=== PATIENT | male | born 1975 | race Caucasian/White ===

== ENCOUNTER 2021-06-12 18:19 | Emergency (ER) | payer OTHER, SELFPAY ==
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
[2021-06-12 18:30] VITALS: BP 165/107; BP 171/104; PULSE 91; PULSE 95; RESP 18; TEMP 36.9; O2SAT 100; O2SAT 98; BMI 20.7
--- NOTE | 2021-06-12 19:25 | MHC.CARE ---
CARE Team attempted to meet with pt to offer SUDE, but pt had already eloped.
--- NOTE | 2021-06-12 19:33 | PC.NURSE ---
This nurse was coming out of ED room 12 when this nurse was informed by another RN that pt may have eloped. This nurse last laid eyes on pt around 191. Pt was sitting on stretcher. Bathrooms checked and all empty barge loader aware, security called MD aware
== END 2021-06-12 19:25 | disposition left against medical advice (07) ==
PROVIDERS: Emergency Provider Emergency Medicine; PCP Internal Medicine
DX: T40.601A Poisoning by unspecified narcotics, accidental (unintentional), initial encounter (principal); Y92.810 Car as the place of occurrence of the external cause
CPT/HCPCS: 99283

== ENCOUNTER 2021-07-16 11:02 | Inpatient (IN) | payer OTHER, SELFPAY ==
--- NOTE | 2021-07-16 | ECG_ITS ---
Test Reason : positive for cocaine Blood Pressure : / mmHG Vent. Rate : 061 BPM Atrial Rate : 061 BPM P-R Int : 136 ms QRS Dur : 106 ms QT Int : 444 ms P-R-T Axes : 083 073 076 degrees QTc Int : 446 ms Normal sinus rhythm Normal ECG No previous ECGs available Referred By: Yonis Valdovinos Electronically Signed By:RANULFO DEVI MD
[2021-07-16 11:08] VITALS: BP 151/80; PULSE 64; RESP 19; TEMP 36.6; O2SAT 98; BMI 19.8
--- NOTE | 2021-07-16 12:31 | ED_ITS ---
HPI - Psych General Chief Complaint: Psychiatric Symptoms Stated Complaint: CRISIS Time Seen by Provider: 07/16/21 12:30 Source: patient Mode of arrival: ambulatory Limitations: no limitations History of Present Illness HPI Narrative: this is a 46 years old patient with history of bipolar disorder, anxiety, substance abuse presented to the emergency room complaining of increasing anxiety, he states that he is by his . complaint: anxiety Onset (ago): day(s) (1) Duration: constant History of same: Yes Relieving factors: none Exacerbating factors: none Context: recent alcohol abuse and recent drug abuse Related Data Allergies Allergy/AdvReac Type Severity Reaction Status Date / Time No Known Allergies Allergy Verified 06/12/21 18:29 Review of Systems Review of Systems: Yes all other systems are reviewed and are negative Cardiovascular: Cardiovascular: Reports no additional cardiovascular complaints, Denies chest pain and Denies dyspnea Respiratory: Respiratory: Reports no additional respiratory complaints and Denies dyspnea Musculoskeletal: Musculoskeletal: Reports no additional musculoskeletal complaints PMFSH Past Medical History Medical History Anxiety No known health problems Social History Social History Patient Tobacco Use Status: Current everyday Tobacco user Substance Use Type: Marijuana Advance Directives: No Advance Directives Information Provided: Yes Physical Exam Vital Signs: Vital Signs: Last Vital Signs Temp 98 F 07/16/21 11:08 Pulse 64 07/16/21 11:08 Resp 19 07/16/21 11:08 BP 151/80 H 07/16/21 11:08 Pulse Ox 98 07/16/21 11:08 BMI result Body Mass Index 19.8 Const: General: cooperative and comfortable Nutritional Appearance: well nourished Orientation/consciousness: patient oriented x3 HENMT: Head: Yes normal to inspection and Yes No palpable skull fracture present Ears: hearing grossly normal bilaterally General nose exam: Normal external nose present Face and sinus: Yes normal facial exam Mouth: Normal oral and palatal mucosa present Throat: Yes posterior oropharynx normal Neck: Neck: Yes normal visual inspection, Yes full ROM, Yes no lymphadenopathy and Yes no meningeal signs Thyroid: Thyroid normal Chest: Chest palpation & inspection: normal inspection of the chest Resp: Effort & Inspection: normal respiratory effort and able to speak in complete sentences Auscultation: clear to auscultation bilaterally Cardio: Jugular venous distension: no JVD Rate: regular rate Rhythm: regular rhythm GI: Inspection: Yes normal to inspection Palpation (GI): Soft to palpation, not firm, nontender and no guarding Skin: General skin exam: no rashes or lesions noted, elasticity normal and t urgor normal Lesions: no lesions Rashes: no rashes Neuro: General: patient oriented x3, no meningeal signs, no focal motor deficits, CN's II-XI intact bilaterally and normal sensation to monofilament Cranial nerves: Yes CN's II-XII intact bilaterally Course Reevaluation(s) Reevaluation #1: Waiting for [facility] apryl ,case will be sign out to incoming attending Dr Adrian Time: 15:44 MDM - Psych Lab Data Result diagrams: 07/16/21 12:47 07/16/21 12:47 Labs: Lab Results 07/16/21 07/16/21 07/16/21 Range/Units 12:24 12:47 12:47 WBC 8.9 (4.8-10.8) X10*3/uL RBC 4.86 (4.60-5.80) X10*6/uL Hgb 14.1 (14.0-18.0) g/dl Hct 41.4 L (42.0-52.0) % MCV 85.2 (80.0-98.0) fL MCH 29.0 (27.0-33.0) pg MCHC 34.1 (31.0-36.0) g/dl RDW 13.8 (11.0-16.0) % Plt Count 189 (160-400) X10*3/uL MPV 10.5 (9.4-12.4) fL Immature Gran % (Auto) 0.1 (0.0-0.4) % Neut % (Auto) 66.7 (45-73) % Lymph % (Auto) 20.9 (20-40) % Geary % (Auto) 11.4 H (2-11) % Eos % (Auto) 0.6 (0-4) % Baso % (Auto) 0.3 (0-2) % Lymph # (Auto) 1.9 (1.2-4.9) X10*3/uL Geary # (Auto) 1.0 (0.1-1.2) X10*3/uL Eos # (Auto) 0.1 (0.0-0.4) X10*3/uL Baso # (Auto) 0.0 (0.0-0.2) X10*3/uL Abs Immat Gran (auto) 0.01 (0.00-0.03) X10*3/uL Absolute Neuts (auto) 5.9 (2.0-8.3) x10*3/uL Absolute Nucleated RBC 0.000 (0.0-0.012) X10*3/uL Nucleated RBC % (auto) 0.0 (0.0-0.2) /100WBC Sodium 140 (135-145) mmol/L Potassium 4.0 (3.3-5.1) mmol/L Chloride 105 (96-108) mmol/L Carbon Dioxide 26 (22-29) mmol/L Anion Gap 13 (12-20) BUN 16 (9-16) mg/dL Creatinine 0.88 (0.5-1.4) mg/dL Estim Creat Clear Calc 88.4 Estimated GFR > 60 Random Glucose 75 (60-115) mg/dL Calcium 9.1 (8.4-10.2) mg/dL Total Bilirubin 0.8 (0.0-1.0) mg/dL AST 44 H (5-37) U/L ALT 22 (0-40) U/L Alkaline Phosphatase 77 (39-117) U/L Total Protein 6.3 L (6.5-8.0) g/dL Albumin 3.9 (3.5-5.0) g/dL Urine Opiates Screen (Not Detect) Urine Fentanyl Screen (Not Detect) Ur Barbiturates Screen (Not Detect) Ur Phencyclidine Scrn (Not Detect) Ur Amphetamines Screen (Not Detect) U Benzodiazepines Scrn (Not Detect) Urine Cocaine Screen (Not Detect) U Marijuana (THC) Screen (Not Detect) Ethyl Alcohol mg/dL COVID-19 ([facility]) Negative (Negative) COVID-19 Clin Com See Note 07/16/21 07/16/21 Range/Units 12:47 14:01 WBC (4.8-10.8) X10*3/uL RBC (4.60-5.80) X10*6/uL Hgb (14.0-18.0) g/dl Hct (42.0-52.0) % MCV (80.0-98.0) fL MCH (27.0-33.0) pg MCHC (31.0-36.0) g/dl RDW (11.0-16.0) % Plt Count (160-400) X10*3/uL MPV (9.4-12.4) fL Immature Gran % (Auto) (0.0-0.4) % Neut % (Auto) (45-73) % Lymph % (Auto) (20-40) % Geary % (Auto) (2-11) % Eos % (Auto) (0-4) % Baso % (Auto) (0-2) % Lymph # (Auto) (1.2-4.9) X10*3/uL Geary # (Auto) (0.1-1.2) X10*3/uL Eos # (Auto) (0.0-0.4) X10*3/uL Baso # (Auto) (0.0-0.2) X10*3/uL Abs Immat Gran (auto) (0.00-0.03) X10*3/uL Absolute Neuts (auto) (2.0-8.3) x10*3/uL Absolute Nucleated RBC (0.0-0.012) X10*3/uL Nucleated RBC % (auto) (0.0-0.2) /100WBC Sodium (135-145) mmol/L Potassium (3.3-5.1) mmol/L Chloride (96-108) mmol/L Carbon Dioxide (22-29) mmol/L Anion Gap (12-20) BUN (9-16) mg/dL Creatinine (0.5-1.4) mg/dL Estim Creat Clear Calc Estimated GFR Random Glucose (60-115) mg/dL Calcium (8.4-10.2) mg/dL Total Bilirubin (0.0-1.0) mg/dL AST (5-37) U/L ALT (0-40) U/L Alkaline Phosphatase (39-117) U/L Total Protein (6.5-8.0) g/dL Albumin (3.5-5.0) g/dL Urine Opiates Screen Not Detected (Not Detect) Urine Fentanyl Screen Not Detected (Not Detect) Ur Barbiturates Screen POSITIVE H (Not Detect) Ur Phencyclidine Scrn Not Detected (Not Detect) Ur Amphetamines Screen Not Detected (Not Detect) U Benzodiazepines Scrn POSITIVE H (Not Detect) Urine Cocaine Screen POSITIVE H (Not Detect) U Marijuana (THC) Screen POSITIVE H (Not Detect) Ethyl Alcohol < 10 mg/dL COVID-19 ([facility]) (Negative) COVID-19 Clin Com Discharge Plan Discharge Clinical Impression: Anxiety
[2021-07-16] MEDS: LORazepam 1 MG TABLET PO (12:36)
[2021-07-16 12:51] LABS: COVID-19 Test Negative (Negative)
[2021-07-16 12:57] LABS: MANUAL DIFF FLAG NO
[2021-07-16 13:00] LABS: Basophils Percent Auto 0.3 % (0-2); Eosinophils Absolute Auto 0.1 X10*3/uL (0.0-0.4); Eosinophils Percent Auto 0.6 % (0-4); Hematocrit 41.4 % (42.0-52.0); Hemoglobin 14.1 g/dl (14.0-18.0); Imm Gran Abs Auto 0.01 X10*3/uL (0.00-0.03); Imm Gran Pct Auto 0.1 % (0.0-0.4); Lymphocytes Absolute Auto 1.9 X10*3/uL (1.2-4.9); Lymphocytes Percent Auto 20.9 % (20-40); Mean Corpuscular HGB Conc 34.1 g/dl (31.0-36.0); Mean Corpuscular Volume 85.2 fL (80.0-98.0); Mean Platelet Volume 10.5 fL (9.4-12.4); Monocytes Percent Auto 11.4 % (2-11); Neutrophils Absolute Auto 5.9 x10*3/uL (2.0-8.3); Neutrophils Percent Auto 66.7 % (45-73); Platelet Count 189 X10*3/uL (160-400); Red Blood Count 4.86 X10*6/uL (4.60-5.80); Red Cell Distribution Width 13.8 % (11.0-16.0); White Blood Count 8.9 X10*3/uL (4.8-10.8)
[2021-07-16 13:10] LABS: Ethanol < 10 mg/dL
[2021-07-16 13:14] LABS: Alanine Aminotransferase 22 U/L (0-40); Albumin Level 3.9 g/dL (3.5-5.0); Alkaline Phosphatase 77 U/L (39-117); Anion Gap 13 (12-20); Aspartate Amino Transferase 44 U/L (5-37); Bilirubin Total 0.8 mg/dL (0.0-1.0); Blood Urea Nitrogen 16 mg/dL (9-16); Calcium 9.1 mg/dL (8.4-10.2); Carbon Dioxide 26 mmol/L (22-29); Chloride 105 mmol/L (96-108); Creatinine Clr Calc Pharmacy 88.4; Estimated Glomerular Filt Rate > 60; Glucose Random 75 mg/dL (60-115); Sodium 140 mmol/L (135-145); Total Protein 6.3 g/dL (6.5-8.0)
[2021-07-16 14:29] LABS: Amphetamine Screen Urine Not Detected (Not Detect); Barbiturates, Urine POSITIVE (Not Detect); Benzodiazepines Screen Urine POSITIVE (Not Detect); Cannabinoid Screen Urine POSITIVE (Not Detect); Cocaine Screen Urine POSITIVE (Not Detect); Fentanyl, urine Not Detected (Not Detect); Opiate Screen Urine Not Detected (Not Detect); Phencyclidine Screen Urine Not Detected (Not Detect)
--- NOTE | 2021-07-16 14:44 | MHC.CARE ---
Spoke to patient in [facility], he was looking for a psychiatric admission to get on medication to manage his Bipolar symptoms. 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 In addition, patient reported has recently from his . Prefers [facility] because he was recently there in the [facility] but open to any facility, advised he will likely be evaluated within the next two hours.
--- NOTE | 2021-07-16 15:38 | PC.NURSE ---
patient referred to emily
[2021-07-16 17:37] VITALS: BP 147/69; PULSE 56; RESP 16; TEMP 36.1; O2SAT 97
--- NOTE | 2021-07-16 18:53 | PC.NURSE ---
care team in with patient at this time
--- NOTE | 2021-07-17 06:33 | PC.NURSE ---
Patient slept though the night, no distress observed/reported, behavior calm, isolative, and non concerning at this time, patient is currently not on any medication, disposition per care team is voluntary inpatient bed search, will continue to monitor.
[2021-07-17 06:51] VITALS: BP 143/83; PULSE 72; RESP 16; TEMP 36.5; O2SAT 99
--- NOTE | 2021-07-17 07:17 | PC.NURSE ---
patient appears to remain asleep at present respirations are even and unlbaored aptient appears in no distress
[2021-07-17] MEDS: Nicotine Polacrilex 2 MG GUM BUCCAL (08:33)
[2021-07-17] MEDS: hydrOXYzine HCL 25 MG TABLET PO ×3 (08:33→18:53)
[2021-07-17] MEDS: Nicotine 21 MG PATCH.TD24 TRANSDERMA (13:03)
[2021-07-17] MEDS: Ibuprofen 600 MG TABLET PO ×2 (13:59→18:53)
[2021-07-17 17:49] VITALS: BP 134/96; PULSE 79; RESP 17; TEMP 36.8; O2SAT 97
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
[2021-07-17 20:00] VITALS: BP 133/81; PULSE 80; RESP 20; TEMP 36.1; O2SAT 98
[2021-07-17] MEDS: clonazePAM 1 MG TABLET PO (20:09)
[2021-07-18] MEDS: Ibuprofen 600 MG TABLET PO ×2 (06:44→16:41)
[2021-07-18] MEDS: hydrOXYzine HCL 25 MG TABLET PO ×2 (06:45→12:58)
[2021-07-18] MEDS: clonazePAM 1 MG TABLET PO ×3 (08:06→20:30)
[2021-07-18 08:09] VITALS: BP 148/67; PULSE 74; RESP 16; TEMP 36.6; O2SAT 98
[2021-07-18 09:09] LABS: Estimated Average Glucose 100 mg/dL; Hemoglobin A1c % 5.1 %
[2021-07-18 09:18] LABS: Cholesterol 235 mg/dL; HDL Cholesterol 59 mg/dL; LDL Cholesterol Calculated 149 mg/dl; Triglycerides 138 mg/dL
[2021-07-18] MEDS: Nicotine Polacrilex 2 MG GUM BUCCAL (10:51)
--- NOTE | 2021-07-18 11:33 | MHC.CLN ---
NUTRITION ADDING ENSURE TID PER CONVERSATION WITH PATIENT. PROVIDES 1050 KCAL, 60 G PROTEIN. ALSO ENCOURAGED PATIENT TO ORDER ADDITIONAL FOODS AT MEALS IF DESIRED. PATIENT IS 84% OF IBW. REPORTS POOR INTAKE X APPROXIMATELY 6 WEEKS. REPORTS UBW RANGE IS 130-150#.
[2021-07-18 11:36] VITALS: BMI 19.8
[2021-07-18] MEDS: Nicotine 21 MG PATCH.TD24 TRANSDERMA (11:56)
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
[2021-07-18] MEDS: FLUoxetine HCl 20 MG CAPSULE PO (16:41)
[2021-07-18 20:25] VITALS: BP 134/70; PULSE 65; RESP 18; TEMP 36.8; O2SAT 98
[2021-07-18] MEDS: Doxazosin Mesylate 2 MG TABLET PO (20:30)
[2021-07-18] MEDS: traZODone HCL 50 MG TABLET PO (20:34)
[2021-07-19 07:00] VITALS: BMI 20.5
[2021-07-19 08:08] VITALS: BP 139/88; PULSE 87; RESP 18; TEMP 36.6; O2SAT 98
[2021-07-19] MEDS: Nicotine 21 MG PATCH.TD24 TRANSDERMA (08:14)
[2021-07-19] MEDS: hydrOXYzine HCL 25 MG TABLET PO (08:15)
[2021-07-19] MEDS: Ibuprofen 600 MG TABLET PO ×2 (08:15→14:55)
[2021-07-19] MEDS: clonazePAM 1 MG TABLET PO ×2 (09:42→20:44)
[2021-07-19] MEDS: FLUoxetine HCl 20 MG CAPSULE PO (09:45)
[2021-07-19] MEDS: QUEtiapine Fumarate 25 MG TABLET PO ×2 (13:04→18:29)
--- NOTE | 2021-07-19 14:12 | P.PNPSI_ITS ---
Subjective Subjective Date of Service: 07/19/21 Reason For Visit: SI Interim History: pt slept 1030 to 3, then was up and down after 3. agreeable to increase doxazosin to 3 mg at bedtime as of tonight. his GF nathaly visited yesterday, which went well. 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 informs pt klonopin taper will begin, with decrease from 3 mg daily to 2.5 mg daily today. pt is very reluctant. MD adds seroquel 25 mg Q4H PRN in place of klonopin. per staff, back, foot, shoulder pain. blisters on feet, lac on right calf. pleasant, calm, med-compliant. slept well overnight. Mental Status Exam Mental Status Exam Narrative: thin, appropriately dressed and groomed. cooperative. no PMA/PMR. speech nml rate, incr amount, nml loudness, decr latency. thoughts linear and logical without evidence of delusions or paranoia. affect full range, normo-intense, non-labile, consistent with subject matter. no SI/HI/AVH expressed. Diagnostics Vital Signs (24Hr): Vital Signs - 24 hr 07/18/21 20:25 07/19/21 08:08 Temperature 98.2 F 97.8 F Pulse Rate 65 87 Respiratory Rate 18 18 Blood Pressure 134/70 139/88 Pulse Oximetry 98 98 BMI result Body Mass Index 19.8 Labs Results: 07/16/21 12:47 07/16/21 12:47 Labs: Laboratory Results - last 48 hr 07/18/21 07/18/21 08:40 08:40 Estimat Average Glucose 100 Hemoglobin A1c % 5.1 Triglycerides 138 Cholesterol 235 LDL Cholesterol, Calc 149 HDL Cholesterol 59 Medications Medications Current Medications Acetaminophen (Acetaminophen 325 Mg Tablet) 650 mg PO Q6H PRN PRN Reason: Headache/Pain Mild Scale (1-3) Al Hydroxide/Mg Hydroxide (Magnesium Hydrox/Alum Hydrox 30 Ml Oral.Susp) 30 ml PO Q6H PRN PRN Reason: Heartburn/Nausea Clonazepam (Clonazepam 1 Mg Tablet) 1 mg PO BID [facility] Clonazepam (Clonazepam 0.5 Mg Tablet) 0.5 mg PO DAILY@1500 [facility] Doxazosin Mesylate (Doxazosin Mesylate 1 Mg Tablet) 3 mg PO BEDTIME [facility]; Protocol Fluoxetine HCl (Fluoxetine Hcl 20 Mg Capsule) 20 mg PO DAILY [facility] Last Admin: 07/19/21 09:45 Dose: 20 mg Documented by: Hydroxyzine HCl (Hydroxyzine Hcl 25 Mg Tablet) 25 mg PO QID PRN PRN Reason: Anxiety Last Admin: 07/19/21 08:15 Dose: 25 mg Documented by: Ibuprofen (Ibuprofen 600 Mg Tablet) 600 mg PO Q6H PRN PRN Reason: Pain, Mild (Pain Scale 1-3) Last Admin: 07/19/21 08:15 Dose: 600 mg Documented by: Magnesium Hydroxide (Milk Of Magnesia 30 Ml Oral.Susp) 30 ml PO DAILY PRN PRN Reason: Constipation Nicotine (Nicotine 21 Mg Patch.Td24) 21 mg TRANSDERMA DAILY [facility] Last Admin: 07/19/21 08:14 Dose: 21 mg Documented by: Nicotine Polacrilex (Nicotine Polacrilex 2 Mg Gum) 2 mg BUCCAL QID PRN PRN Reason: Nicotine Cravings Last Admin: 07/18/21 10:51 Dose: 2 mg Documented by: Quetiapine Fumarate (Quetiapine Fumarate 25 Mg Tablet) 25 mg PO Q4H PRN PRN Reason: moderate anxiety Last Admin: 07/19/21 13:04 Dose: 25 mg Documented by: Trazodone HCl (Trazodone Hcl 50 Mg Tablet) 50 mg PO BEDTIME PRN PRN Reason: Insomnia Last Admin: 07/18/21 20:34 Dose: 50 mg Documented by: Allergies Allergies Allergy/AdvReac Type Severity Reaction Status Date / Time No Known Allergies Allergy Verified 06/12/21 18:29 Assessment & Plan Assessment & Plan (1) PTSD (post-traumatic stress disorder): Status: Acute Code(s): F43.10 - Post-traumatic stress disorder, unspecified (2) Polysubstance (including opioids) dependence with physiol dependence: Status: Acute Code(s): F19.20 - Other psychoactive substance dependence, uncomplicated Plan tapered klonopin 1 mg TID to 1/0.5/1 as of 07/19. started prozac 20 mg daily 07/18. started doxazosin 2 mg at HS 07/18, increased to 3 mg QHS as of 07/19. I spent ___25___ minutes with the patient and/or on the patient floor today, greater than?50% of which was spent counseling/coordinating care. Reason for contiued inpatient stay Substantial Risk for: inability to function and rapid decompensation
[2021-07-19] MEDS: clonazePAM 0.5 MG TABLET PO (14:55)
--- NOTE | 2021-07-19 15:07 | PC.NURSE ---
Skin assessment: Patient reports blisters right and left feet are healing- when assessed, blisters are intact, no erythema, no drainage- patient reports decreased discomfort. Laceration left calf clean ~ 3/4 inch long, no erythema- patient reports he last had tetanus injection 3 years ago.
--- NOTE | 2021-07-19 16:22 | PC.NURSE ---
CIWA: Patient denies any symptoms of withdrawal- reports hx of anxiety and currentl;y experiencing anxiety- treated w/ scheduled clonazepam and seroquel PRN. Patient does have tremors, states he is unjsure if this is related to anxiety or mild withdrawal.
--- NOTE | 2021-07-19 17:51 | PC.NURSE ---
Skin assessment: Patient reports blisters right and left feet are healing- when assessed, blisters are intact, no erythema, no drainage- patient reports decreased discomfort. Laceration calf clean ~ 3/4 inch long, no erythema- patient reports he last had tetanus injection 3 years ago.
[2021-07-19] MEDS: Doxazosin Mesylate 1 MG TABLET 3 MG PO (20:44)
[2021-07-19 21:15] VITALS: BP 175/109; PULSE 79; RESP 18; TEMP 36.7; O2SAT 95
[2021-07-19] MEDS: traZODone HCL 50 MG TABLET PO (21:24)
--- NOTE | 2021-07-20 00:15 | PC.NURSE ---
At the time of med pass, approximately 2100, took pt's VS and BP was 175/109. Pt denied h/a or chest pain, stated he was very anxious over a phone call he was on that caused him to be aware that he has a warrant out for him and the possibility of his having to go to [facility]. I rechecked his BP 20 minutes later and it was 171/99. He received his nighttime meds and rec'd Cardura 3mg. Pt again denied h/a and chest pain stating it was due to the info he rec'd on the phone call. Pt went to bed and BP was rechecked at 1100pm, VS were 126/77 with a pulse of 66. Will continue to monitor throughout the shift.
[2021-07-20] MEDS: FLUoxetine HCl 20 MG CAPSULE PO (08:20)
[2021-07-20] MEDS: QUEtiapine Fumarate 25 MG TABLET PO (08:20)
[2021-07-20] MEDS: clonazePAM 1 MG TABLET PO ×2 (08:20→21:23)
[2021-07-20] MEDS: Nicotine 21 MG PATCH.TD24 TRANSDERMA (08:20)
[2021-07-20 08:36] VITALS: BP 134/88; PULSE 84; RESP 18; TEMP 36.6; O2SAT 96
[2021-07-20 10:59] VITALS: BP 150/83; PULSE 89; RESP 18; TEMP 36.6; O2SAT 98
[2021-07-20] MEDS: cloNIDine HCL 0.1 MG TABLET PO ×3 (11:14→16:23)
[2021-07-20] MEDS: hydrOXYzine HCL 50 MG TABLET PO ×3 (11:15→21:25)
[2021-07-20] MEDS: QUEtiapine Fumarate 50 MG TABLET PO (11:15)
--- NOTE | 2021-07-20 11:19 | PC.NURSE ---
Patient reporting that he is having significant anxiety, has been attempting to use meditation and other coping skills to manage but reports he feels he needs additional support. Dr. Nelson notified, PRN clonidine, hydroxyzine, seroquel given as ordered.
--- NOTE | 2021-07-20 13:46 | MHC.CLN ---
F/U NO REPORTED CONCERNS WITH INTAKE OR APPETITE. CONTINUE REGULAR DIET WITH ENSURE TID.
[2021-07-20] MEDS: Ibuprofen 600 MG TABLET PO (14:28)
[2021-07-20 14:30] VITALS: BP 135/82; PULSE 96; RESP 18; O2SAT 98
--- NOTE | 2021-07-20 14:51 | P.PNPSI_ITS ---
Subjective Subjective Date of Service: 07/20/21 Reason For Visit: SI Interim History: pt reports it has been an eventful day. he updates MD that he has arranged to have warrant removed and to be given a court date instead. he is working with SONIA shepard on getting into a [facility]. up multiple times overnight due to stress and anxiety about warrant for his arrest he learned about yesterday. agreeable to increase doxazosin to 5 mg for sleep and nightmares. per staff, dep 2.5, anxiety 07/19. denies SI/HI/AVH. interacgtive, eating well. safe on unit. warrant out for his arrest. PRN clonidine added to regimen and dosing of seroquel and hydroxyzine increased PRN anxiety. Mental Status Exam Mental Status Exam Narrative: thin, appropriately dressed and groomed. cooperative. no PMA/PMR. speech nml rate, incr amount, nml loudness, decr latency. thoughts linear and logical without evidence of delusions or paranoia. affect full range, normo-intense, non-labile, consistent with subject matter. no SI/HI/AVH expressed. Diagnostics Vital Signs (24Hr): Vital Signs - 24 hr 07/19/21 21:15 07/20/21 08:36 07/20/21 10:59 Temperature 98.0 F 97.8 F 98 F Pulse Rate 79 84 89 Respiratory Rate 18 18 18 Blood Pressure 175/109 H 134/88 150/83 H Pulse Oximetry 95 96 98 07/20/21 14:30 Temperature Pulse Rate 96 Respiratory Rate 18 Blood Pressure 135/82 Pulse Oximetry 98 BMI result Body Mass Index 20.5 Labs Results: 07/16/21 12:47 07/16/21 12:47 Medications Medications Current Medications Acetaminophen (Acetaminophen 325 Mg Tablet) 650 mg PO Q6H PRN PRN Reason: Headache/Pain Mild Scale (1-3) Al Hydroxide/Mg Hydroxide (Magnesium Hydrox/Alum Hydrox 30 Ml Oral.Susp) 30 ml PO Q6H PRN PRN Reason: Heartburn/Nausea Clonazepam (Clonazepam 1 Mg Tablet) 1 mg PO BID [facility] Last Admin: 07/20/21 08:20 Dose: 1 mg Documented by: Clonidine HCl (Clonidine Hcl 0.1 Mg Tablet) 0.1 mg PO Q2H PRN; Protocol PRN Reason: anxiety Last Admin: 07/20/21 14:33 Dose: 0.1 mg Documented by: Doxazosin Mesylate (Doxazosin Mesylate 1 Mg Tablet) 5 mg PO BEDTIME REPLACED BY [facility]; Protocol Fluoxetine HCl (Fluoxetine Hcl 20 Mg Capsule) 20 mg PO DAILY REPLACED BY [facility] Last Admin: 07/20/21 08:20 Dose: 20 mg Documented by: Hydroxyzine HCl (Hydroxyzine Hcl 50 Mg Tablet) 50 mg PO QID PRN PRN Reason: Anxiety Last Admin: 07/20/21 11:15 Dose: 50 mg Documented by: Ibuprofen (Ibuprofen 600 Mg Tablet) 600 mg PO Q6H PRN PRN Reason: Pain, Mild (Pain Scale 1-3) Last Admin: 07/20/21 14:28 Dose: 600 mg Documented by: Magnesium Hydroxide (Milk Of Magnesia 30 Ml Oral.Susp) 30 ml PO DAILY PRN PRN Reason: Constipation Nicotine (Nicotine 21 Mg Patch.Td24) 21 mg TRANSDERMA DAILY REPLACED BY [facility] Last Admin: 07/20/21 08:20 Dose: 21 mg Documented by: Nicotine Polacrilex (Nicotine Polacrilex 2 Mg Gum) 2 mg BUCCAL QID PRN PRN Reason: Nicotine Cravings Last Admin: 07/18/21 10:51 Dose: 2 mg Documented by: Quetiapine Fumarate (Quetiapine Fumarate 25 Mg Tablet) 75 mg PO Q4H PRN PRN Reason: moderate anxiety Trazodone HCl (Trazodone Hcl 50 Mg Tablet) 50 mg PO BEDTIME PRN PRN Reason: Insomnia Last Admin: 07/19/21 21:24 Dose: 50 mg Documented by: Allergies Allergies Allergy/AdvReac Type Severity Reaction Status Date / Time No Known Allergies Allergy Verified 06/12/21 18:29 Assessment & Plan Assessment & Plan (1) PTSD (post-traumatic stress disorder): Status: Acute Code(s): F43.10 - Post-traumatic stress disorder, unspecified (2) Polysubstance (including opioids) dependence with physiol dependence: Status: Acute Code(s): F19.20 - Other psychoactive substance dependence, uncomplicated Plan tapered klonopin 1 mg TID to 1/0.5/1 as of 07/19. tapering over w/e. using clonidine, seroquel, atarax for anxiety. started prozac 20 mg daily 07/18. started doxazosin 2 mg at HS 3/9, increased to 3 mg QHS as of 07/19, 5 mg as of 07/20. I spent ___35___ minutes with the patient and/or on the patient floor today, greater than?50% of which was spent counseling/coordinating care. Reason for contiued inpatient stay Substantial Risk for: harm to self, inability to function and rapid decompensation
[2021-07-20] MEDS: QUEtiapine Fumarate 25 MG TABLET 75 MG PO (16:24)
[2021-07-20 21:21] VITALS: BP 103/62; PULSE 71; TEMP 36.5; O2SAT 99
[2021-07-20] MEDS: Acetaminophen 325 MG TABLET 650 MG PO (21:23)
[2021-07-20] MEDS: Nicotine Polacrilex 2 MG GUM BUCCAL (21:24)
[2021-07-20] MEDS: Doxazosin Mesylate 1 MG TABLET 5 MG PO (21:25)
[2021-07-20] MEDS: traZODone HCL 50 MG TABLET PO (21:30)
[2021-07-21] MEDS: Ibuprofen 600 MG TABLET PO ×2 (08:18→15:52)
[2021-07-21] MEDS: clonazePAM 0.5 MG TABLET PO (08:18)
[2021-07-21] MEDS: Nicotine 21 MG PATCH.TD24 TRANSDERMA (08:19)
[2021-07-21] MEDS: FLUoxetine HCl 20 MG CAPSULE PO (08:19)
[2021-07-21] MEDS: Nicotine Polacrilex 2 MG GUM BUCCAL ×3 (08:21→18:21)
[2021-07-21 08:33] VITALS: BP 120/65; PULSE 98; RESP 18; TEMP 36.7; O2SAT 98
--- NOTE | 2021-07-21 09:56 | P.PNPSI_ITS ---
Subjective Subjective Date of Service: 07/21/21 Reason For Visit: SI Subjective Notes: Conditional Voluntary Medical Problems Affecting Mental Status: No Interim History: pt reports he is anxious today; reports he slept well. denies etoh withdrawal symptoms. He is future oriented. no SI or Hi Medication Compliance: Yes Side effects from medications: No Attending Groups: Intermittent Review of Systems Acute medical concerns: No Medical Review of Systems: unchanged Review of Systems Review of Systems Yes all other systems are reviewed and are negative Cardiovascular: Reports no additional cardiovascular complaints, Denies chest pain and Denies dyspnea Respiratory: Reports no additional respiratory complaints and Denies dyspnea Musculoskeletal: Reports no additional musculoskeletal complaints Mental Status Exam Mental Status Exam Narrative: thin, appropriately dressed and groomed. reports anxious, cooperative. speech nml rate, incr amount, nml loudness, latency. thoughts linear and logical without evidence of delusions or paranoia. affect full range, normo-intense, non-labile, consistent with subject matter. no SI/HI/AVH expressed. Judgement: Fair Diagnostics Vital Signs (24Hr): Vital Signs - 24 hr 07/20/21 10:59 07/20/21 14:30 07/20/21 21:21 Temperature 98 F 97.7 F Pulse Rate 89 96 71 Respiratory Rate 18 18 Blood Pressure 150/83 H 135/82 103/62 Pulse Oximetry 98 98 99 07/21/21 08:33 Temperature 98.1 F Pulse Rate 98 Respiratory Rate 18 Blood Pressure 120/65 Pulse Oximetry 98 BMI result Body Mass Index 20.5 Labs Results: 07/16/21 12:47 07/16/21 12:47 Medications Medications Current Medications Acetaminophen (Acetaminophen 325 Mg Tablet) 650 mg PO Q6H PRN PRN Reason: Headache/Pain Mild Scale (1-3) Last Admin: 07/20/21 21:23 Dose: 650 mg Documented by: Al Hydroxide/Mg Hydroxide (Magnesium Hydrox/Alum Hydrox 30 Ml Oral.Susp) 30 ml PO Q6H PRN PRN Reason: Heartburn/Nausea Clonazepam (Clonazepam 1 Mg Tablet) 1 mg PO ONCE ONE Stop: 07/21/21 21:01 Clonazepam (Clonazepam 0.5 Mg Tablet) 0.5 mg PO ONCE ONE Stop: 07/22/21 09:01 Clonazepam (Clonazepam 0.5 Mg Tablet) 0.5 mg PO ONCE ONE Stop: 07/22/21 21:01 Clonazepam (Clonazepam 0.5 Mg Tablet) 0.5 mg PO ONCE ONE Stop: 07/23/21 21:01 Clonidine HCl (Clonidine Hcl 0.1 Mg Tablet) 0.1 mg PO Q2H PRN; Protocol PRN Reason: anxiety Last Admin: 07/20/21 16:23 Dose: 0.1 mg Documented by: Doxazosin Mesylate (Doxazosin Mesylate 1 Mg Tablet) 5 mg PO BEDTIME [facility]; Protocol Last Admin: 07/20/21 21:25 Dose: 5 mg Documented by: Fluoxetine HCl (Fluoxetine Hcl 20 Mg Capsule) 20 mg PO DAILY [facility] Last Admin: 07/21/21 08:19 Dose: 20 mg Documented by: Hydroxyzine HCl (Hydroxyzine Hcl 50 Mg Tablet) 50 mg PO QID PRN PRN Reason: Anxiety Last Admin: 07/20/21 21:25 Dose: 50 mg Documented by: Ibuprofen (Ibuprofen 600 Mg Tablet) 600 mg PO Q6H PRN PRN Reason: Pain, Mild (Pain Scale 1-3) Last Admin: 07/21/21 08:18 Dose: 600 mg Documented by: Magnesium Hydroxide (Milk Of Magnesia 30 Ml Oral.Susp) 30 ml PO DAILY PRN PRN Reason: Constipation Nicotine (Nicotine 21 Mg Patch.Td24) 21 mg TRANSDERMA DAILY [facility] Last Admin: 07/21/21 08:19 Dose: 21 mg Documented by: Nicotine Polacrilex (Nicotine Polacrilex 2 Mg Gum) 2 mg BUCCAL QID PRN PRN Reason: Nicotine Cravings Last Admin: 07/21/21 08:21 Dose: 2 mg Documented by: Quetiapine Fumarate (Quetiapine Fumarate 25 Mg Tablet) 75 mg PO Q4H PRN PRN Reason: moderate anxiety Last Admin: 07/20/21 16:24 Dose: 75 mg Documented by: Trazodone HCl (Trazodone Hcl 50 Mg Tablet) 50 mg PO BEDTIME PRN PRN Reason: Insomnia Last Admin: 07/20/21 21:30 Dose: 50 mg Documented by: Allergies Allergies Allergy/AdvReac Type Severity Reaction Status Date / Time No Known Allergies Allergy Verified 06/12/21 18:29 Assessment & Plan Assessment & Plan (1) PTSD (post-traumatic stress disorder): Status: Acute Code(s): F43.10 - Post-traumatic stress disorder, unspecified (2) Polysubstance (including opioids) dependence with physiol dependence: Status: Acute Code(s): F19.20 - Other psychoactive substance dependence, uncomplicated Plan tapered klonopin 1 mg TID to 1/0.5/1 as of 07/19. tapering over w/e. using clonidine, seroquel, atarax for anxiety. started prozac 20 mg daily 07/18. started doxazosin 2 mg at HS 07/18, increased to 3 mg QHS as of 07/19, 5 mg as of 07/20. encourage seroquel for anxiety I spent ___15___ minutes with the patient and/or on the patient floor today, greater than?50% of which was spent counseling/coordinating care. Patient educated on: medication risk/benefits and therapeutic strategies Informed Consent: understands and further education needed Reason for contiued inpatient stay Substantial Risk for: harm to self, inability to function and rapid decompensation
[2021-07-21 11:10] VITALS: BP 121/83; PULSE 91
[2021-07-21] MEDS: cloNIDine HCL 0.1 MG TABLET PO ×2 (11:13→20:37)
[2021-07-21] MEDS: Acetaminophen 325 MG TABLET 650 MG PO ×2 (12:46→20:37)
[2021-07-21] MEDS: hydrOXYzine HCL 50 MG TABLET PO ×2 (12:46→18:22)
[2021-07-21] MEDS: QUEtiapine Fumarate 25 MG TABLET 75 MG PO (15:52)
[2021-07-21 20:29] VITALS: BP 127/61; PULSE 91; TEMP 36.5; O2SAT 97
[2021-07-21] MEDS: clonazePAM 1 MG TABLET PO (20:37)
[2021-07-21] MEDS: Doxazosin Mesylate 1 MG TABLET 5 MG PO (20:37)
[2021-07-21] MEDS: traZODone HCL 50 MG TABLET PO (20:38)
[2021-07-22 08:00] VITALS: BP 116/70; PULSE 78; RESP 16; TEMP 36.6; O2SAT 98
[2021-07-22] MEDS: FLUoxetine HCl 20 MG CAPSULE PO (08:29)
[2021-07-22] MEDS: Nicotine 21 MG PATCH.TD24 TRANSDERMA (08:29)
[2021-07-22] MEDS: clonazePAM 0.5 MG TABLET PO ×2 (08:29→21:12)
--- NOTE | 2021-07-22 10:49 | P.PNPSI_ITS ---
Subjective Subjective Date of Service: 07/22/21 Reason For Visit: SI Subjective Notes: Conditional Voluntary Interim History: pt reports he is anxious today; reports he slept well. denies etoh withdrawal symptoms. He is future oriented. no SI or Hi Medication Compliance: Yes Side effects from medications: No Attending Groups: No Review of Systems Acute medical concerns: No Medical Review of Systems: unchanged Review of Systems Review of Systems no change Mental Status Exam Mental Status Exam Narrative: thin, appropriately dressed and groomed. reports anxious, cooperative. speech nml rate, incr amount, nml loudness, latency. thoughts linear and logical without evidence of delusions or paranoia. affect full range, normo-intense, non-labile, consistent with subject matter. no SI/HI/AVH expressed. Diagnostics Vital Signs (24Hr): Vital Signs - 24 hr 07/21/21 11:10 07/21/21 20:29 07/22/21 08:00 Temperature 97.7 F 97.8 F Pulse Rate 91 91 78 Respiratory Rate 16 Blood Pressure 121/83 127/61 116/70 Pulse Oximetry 97 98 BMI result Body Mass Index 20.5 Labs Results: 07/16/21 12:47 07/16/21 12:47 Medications Medications Current Medications Acetaminophen (Acetaminophen 325 Mg Tablet) 650 mg PO Q6H PRN PRN Reason: Headache/Pain Mild Scale (1-3) Last Admin: 07/21/21 20:37 Dose: 650 mg Documented by: Al Hydroxide/Mg Hydroxide (Magnesium Hydrox/Alum Hydrox 30 Ml Oral.Susp) 30 ml PO Q6H PRN PRN Reason: Heartburn/Nausea Clonazepam (Clonazepam 0.5 Mg Tablet) 0.5 mg PO ONCE ONE Stop: 07/22/21 21:01 Clonazepam (Clonazepam 0.5 Mg Tablet) 0.5 mg PO ONCE ONE Stop: 07/23/21 21:01 Clonidine HCl (Clonidine Hcl 0.1 Mg Tablet) 0.1 mg PO Q2H PRN; Protocol PRN Reason: anxiety Last Admin: 07/21/21 20:37 Dose: 0.1 mg Documented by: Doxazosin Mesylate (Doxazosin Mesylate 1 Mg Tablet) 5 mg PO BEDTIME [facility]; Protocol Last Admin: 07/21/21 20:37 Dose: 5 mg Documented by: Fluoxetine HCl (Fluoxetine Hcl 20 Mg Capsule) 20 mg PO DAILY [facility] Last Admin: 07/22/21 08:29 Dose: 20 mg Documented by: Hydroxyzine HCl (Hydroxyzine Hcl 50 Mg Tablet) 50 mg PO QID PRN PRN Reason: Anxiety Last Admin: 07/21/21 18:22 Dose: 50 mg Documented by: Ibuprofen (Ibuprofen 600 Mg Tablet) 600 mg PO Q6H PRN PRN Reason: Pain, Mild (Pain Scale 1-3) Last Admin: 07/21/21 15:52 Dose: 600 mg Documented by: Magnesium Hydroxide (Milk Of Magnesia 30 Ml Oral.Susp) 30 ml PO DAILY PRN PRN Reason: Constipation Nicotine (Nicotine 21 Mg Patch.Td24) 21 mg TRANSDERMA DAILY [facility] Last Admin: 07/22/21 08:29 Dose: 21 mg Documented by: Nicotine Polacrilex (Nicotine Polacrilex 2 Mg Gum) 2 mg BUCCAL QID PRN PRN Reason: Nicotine Cravings Last Admin: 07/21/21 18:21 Dose: 2 mg Documented by: Quetiapine Fumarate (Quetiapine Fumarate 25 Mg Tablet) 75 mg PO Q4H PRN PRN Reason: moderate anxiety Last Admin: 07/21/21 15:52 Dose: 75 mg Documented by: Trazodone HCl (Trazodone Hcl 50 Mg Tablet) 50 mg PO BEDTIME PRN PRN Reason: Insomnia Last Admin: 07/21/21 20:38 Dose: 50 mg Documented by: Allergies Allergies Allergy/AdvReac Type Severity Reaction Status Date / Time No Known Allergies Allergy Verified 06/12/21 18:29 Assessment & Plan Assessment & Plan (1) PTSD (post-traumatic stress disorder): Status: Acute Code(s): F43.10 - Post-traumatic stress disorder, unspecified (2) Polysubstance (including opioids) dependence with physiol dependence: Status: Acute Code(s): F19.20 - Other psychoactive substance dependence, uncomplicated Plan tapered klonopin 1 mg TID to 1/0.5/1 as of 07/19. tapering over w/e. using clonidine, seroquel, atarax for anxiety. started prozac 20 mg daily 07/18. started doxazosin 2 mg at HS 07/18, increased to 3 mg QHS as of 07/19, 5 mg as of 07/20. encourage seroquel for anxiety I spent __15____ minutes with the patient and/or on the patient floor today, greater than?50% of which was spent counseling/coordinating care. Reason for contiued inpatient stay Substantial Risk for: harm to self, inability to function and rapid decompensation
[2021-07-22] MEDS: Nicotine Polacrilex 2 MG GUM BUCCAL ×2 (12:23→14:59)
[2021-07-22] MEDS: QUEtiapine Fumarate 25 MG TABLET 75 MG PO (12:23)
[2021-07-22] MEDS: hydrOXYzine HCL 50 MG TABLET PO (14:59)
[2021-07-22] MEDS: Ibuprofen 600 MG TABLET PO (14:59)
[2021-07-22 18:00] VITALS: BP 130/64; PULSE 80; RESP 16; TEMP 36.7; O2SAT 99
[2021-07-22] MEDS: traZODone HCL 50 MG TABLET PO (21:12)
[2021-07-22] MEDS: Doxazosin Mesylate 1 MG TABLET 5 MG PO (21:12)
[2021-07-23 08:10] VITALS: BP 144/74; PULSE 87; RESP 18; TEMP 36.8; O2SAT 98
[2021-07-23] MEDS: Nicotine 21 MG PATCH.TD24 TRANSDERMA (08:16)
[2021-07-23] MEDS: QUEtiapine Fumarate 25 MG TABLET 75 MG PO (08:17)
[2021-07-23] MEDS: FLUoxetine HCl 20 MG CAPSULE PO (08:18)
[2021-07-23] MEDS: cloNIDine HCL 0.1 MG TABLET PO ×2 (08:19→12:27)
[2021-07-23] MEDS: hydrOXYzine HCL 50 MG TABLET PO (08:19)
--- NOTE | 2021-07-23 09:39 | MHC.CLN ---
F/U NO REPORTED CONCERNS WITH APPETITE OR INTAKE. CONTINUE REGULAR DIET WITH ENSURE TID. RD TO FOLLOW WEEKLY.
[2021-07-23] MEDS: Nicotine Polacrilex 2 MG GUM BUCCAL ×3 (09:56→19:19)
[2021-07-23 12:27] VITALS: BP 173/72; PULSE 87
[2021-07-23 12:51] VITALS: BP 135/78; PULSE 75
--- NOTE | 2021-07-23 14:28 | HO.PSYCHPN ---
Subjective Subjective Date of Service: 07/23/21 Reason For Visit: SI Interim History: pt states he is still not sleeping great, agrees to increase his doxazosin to 6 mg QHS (BP also not entirely WNL). c/o anxiety throughout the day and would like to prophylax against it rather than try to play catch-up. agrees to schedule seroquel 50 mg TID for this purpose. prozac was also increased to 40 mg daily as a higher dose than 20 mg daily will be necessary in the long-run. per staff, slept 8 hours overnight. pleasant, cooperative. dep 2, and 4.5. no SI/HI/AVH. planning for weds DC. Mental Status Exam Mental Status Exam Narrative: thin, appropriately dressed and groomed. reports anxiety. cooperative. speech nml rate, incr amount, nml loudness, latency. thoughts linear and logical without evidence of delusions or paranoia. affect full range, normo-intense, non-labile, consistent with subject matter. no SI/HI/AVH expressed. Diagnostics Vital Signs (24Hr): Vital Signs - 24 hr 07/22/21 18:00 07/23/21 08:10 07/23/21 12:27 Temperature 98.0 F 98.2 F Pulse Rate 80 87 87 Respiratory Rate 16 18 Blood Pressure 130/64 144/74 H 173/72 H Pulse Oximetry 99 98 07/23/21 12:51 Temperature Pulse Rate 75 Respiratory Rate Blood Pressure 135/78 Pulse Oximetry BMI result Body Mass Index 20.5 Labs Results: 07/16/21 12:47 07/16/21 12:47 Medications Medications Current Medications Acetaminophen (Acetaminophen 325 Mg Tablet) 650 mg PO Q6H PRN PRN Reason: Headache/Pain Mild Scale (1-3) Last Admin: 07/21/21 20:37 Dose: 650 mg Documented by: Al Hydroxide/Mg Hydroxide (Magnesium Hydrox/Alum Hydrox 30 Ml Oral.Susp) 30 ml PO Q6H PRN PRN Reason: Heartburn/Nausea Clonazepam (Clonazepam 0.5 Mg Tablet) 0.5 mg PO ONCE ONE Stop: 07/23/21 21:01 Clonidine HCl (Clonidine Hcl 0.1 Mg Tablet) 0.1 mg PO Q2H PRN; Protocol PRN Reason: anxiety Last Admin: 07/23/21 12:27 Dose: 0.1 mg Documented by: Doxazosin Mesylate (Doxazosin Mesylate 2 Mg Tablet) 6 mg PO BEDTIME [facility]; Protocol Fluoxetine HCl (Fluoxetine Hcl 20 Mg Capsule) 40 mg PO DAILY [facility] Ibuprofen (Ibuprofen 600 Mg Tablet) 600 mg PO Q6H PRN PRN Reason: Pain, Mild (Pain Scale 1-3) Last Admin: 07/22/21 14:59 Dose: 600 mg Documented by: Magnesium Hydroxide (Milk Of Magnesia 30 Ml Oral.Susp) 30 ml PO DAILY PRN PRN Reason: Constipation Nicotine (Nicotine 21 Mg Patch.Td24) 21 mg TRANSDERMA DAILY [facility] Last Admin: 07/23/21 08:16 Dose: 21 mg Documented by: Nicotine Polacrilex (Nicotine Polacrilex 2 Mg Gum) 2 mg BUCCAL Q2H PRN PRN Reason: Nicotine Cravings Last Admin: 07/23/21 09:56 Dose: 2 mg Documented by: Quetiapine Fumarate (Quetiapine Fumarate 25 Mg Tablet) 75 mg PO Q4H PRN PRN Reason: moderate anxiety Quetiapine Fumarate (Quetiapine Fumarate 50 Mg Tablet) 50 mg PO TID [facility] Trazodone HCl (Trazodone Hcl 50 Mg Tablet) 50 mg PO BEDTIME PRN PRN Reason: Insomnia Last Admin: 07/22/21 21:12 Dose: 50 mg Documented by: Allergies Allergies Allergy/AdvReac Type Severity Reaction Status Date / Time No Known Allergies Allergy Verified 06/12/21 18:29 Assessment & Plan Assessment & Plan (1) PTSD (post-traumatic stress disorder): Status: Acute Code(s): F43.10 - Post-traumatic stress disorder, unspecified (2) Polysubstance (including opioids) dependence with physiol dependence: Status: Acute Code(s): F19.20 - Other psychoactive substance dependence, uncomplicated Plan tapered klonopin 1 mg TID to 1/0.5/1 as of 07/19, off completely as of 07/24. using clonidine, seroquel, atarax for anxiety. started prozac 20 mg daily 07/18, increased to 40 mg daily as of 07/24. started doxazosin 2 mg at HS 07/18, increased to 3 mg QHS as of 07/19, 5 mg as of 07/20, 6 mg as of 07/23. encourage clonidine first for anxiety, and seroquel second. attempting to get admitted to [facility]. discharge weds, tentatively. I spent ___25___ minutes with the patient and/or on the patient floor today, greater than?50% of which was spent counseling/coordinating care. Reason for contiued inpatient stay Substantial Risk for: inability to function and rapid decompensation
[2021-07-23] MEDS: QUEtiapine Fumarate 50 MG TABLET PO ×2 (14:52→22:33)
[2021-07-23] MEDS: Ibuprofen 600 MG TABLET PO (14:52)
[2021-07-23 18:00] VITALS: BP 140/82; PULSE 81; TEMP 36.8; O2SAT 99
[2021-07-23] MEDS: Doxazosin Mesylate 2 MG TABLET 6 MG PO (22:30)
[2021-07-23] MEDS: clonazePAM 0.5 MG TABLET PO (22:36)
[2021-07-23] MEDS: traZODone HCL 50 MG TABLET PO (22:36)
[2021-07-24] MEDS: Nicotine 21 MG PATCH.TD24 TRANSDERMA (09:16)
[2021-07-24] MEDS: FLUoxetine HCl 20 MG CAPSULE 40 MG PO (09:17)
[2021-07-24] MEDS: QUEtiapine Fumarate 50 MG TABLET PO ×3 (09:17→22:04)
[2021-07-24] MEDS: Ibuprofen 600 MG TABLET PO ×2 (10:06→16:17)
[2021-07-24] MEDS: Nicotine Polacrilex 2 MG GUM BUCCAL ×3 (10:06→20:16)
[2021-07-24 10:09] VITALS: BP 139/83; PULSE 77; RESP 18; TEMP 36.6; O2SAT 98
[2021-07-24 11:00] VITALS: BP 136/79; PULSE 99; RESP 18; O2SAT 97
[2021-07-24] MEDS: cloNIDine HCL 0.1 MG TABLET PO (11:03)
--- NOTE | 2021-07-24 14:56 | P.PNPSI_ITS ---
Subjective Subjective Date of Service: 07/24/21 Reason For Visit: SI Interim History: pt reports he is feeling well today. acknowledges yesterday was a difficult day for him but after speaking with a number of other people he had a moment of acceptance and has felt calmer since then. feels his care has been good, states he feels the medications are starting to kick in, his anxiety is lowered on current regimen. slept well. planning to DC tomorrow to either a program or to home. once home he will eat dinner and go to a meeting. future-oriented. per staff tearful, worried, anxious, visible yesterday. on phone most of the day trying to get a bed at a [facility]. ruminative. slept first have of sylwia shift. no SI/HI. trazodone 2235. Mental Status Exam Mental Status Exam Narrative: thin, appropriately dressed and groomed. reports mood much improved. cooperative. speech nml rate, incr amount, nml loudness, latency. thoughts linear and logical without evidence of delusions or paranoia. affect full range, normo-intense, non-labile, consistent with subject matter. no SI/HI/AVH expressed. Diagnostics Vital Signs (24Hr): Vital Signs - 24 hr 07/23/21 18:00 07/24/21 10:09 07/24/21 11:00 Temperature 98.2 F 97.9 F Pulse Rate 81 77 99 Respiratory Rate 18 18 Blood Pressure 140/82 H 139/83 136/79 Pulse Oximetry 99 98 97 BMI result Body Mass Index 20.5 Labs Results: 07/16/21 12:47 07/16/21 12:47 Medications Medications Current Medications Acetaminophen (Acetaminophen 325 Mg Tablet) 650 mg PO Q6H PRN PRN Reason: Headache/Pain Mild Scale (1-3) Last Admin: 07/21/21 20:37 Dose: 650 mg Documented by: Al Hydroxide/Mg Hydroxide (Magnesium Hydrox/Alum Hydrox 30 Ml Oral.Susp) 30 ml PO Q6H PRN PRN Reason: Heartburn/Nausea Clonidine HCl (Clonidine Hcl 0.1 Mg Tablet) 0.1 mg PO Q2H PRN; Protocol PRN Reason: anxiety Last Admin: 07/24/21 11:03 Dose: 0.1 mg Documented by: Doxazosin Mesylate (Doxazosin Mesylate 2 Mg Tablet) 6 mg PO BEDTIME [facility]; Protocol Last Admin: 07/23/21 22:30 Dose: 6 mg Documented by: Fluoxetine HCl (Fluoxetine Hcl 20 Mg Capsule) 40 mg PO DAILY [facility] Last Admin: 07/24/21 09:17 Dose: 40 mg Documented by: Ibuprofen (Ibuprofen 600 Mg Tablet) 600 mg PO Q6H PRN PRN Reason: Pain, Mild (Pain Scale 1-3) Last Admin: 07/24/21 10:06 Dose: 600 mg Documented by: Magnesium Hydroxide (Milk Of Magnesia 30 Ml Oral.Susp) 30 ml PO DAILY PRN PRN Reason: Constipation Nicotine (Nicotine 21 Mg Patch.Td24) 21 mg TRANSDERMA DAILY [facility] Last Admin: 07/24/21 09:16 Dose: 21 mg Documented by: Nicotine Polacrilex (Nicotine Polacrilex 2 Mg Gum) 2 mg BUCCAL Q2H PRN PRN Reason: Nicotine Cravings Last Admin: 07/24/21 10:06 Dose: 2 mg Documented by: Quetiapine Fumarate (Quetiapine Fumarate 25 Mg Tablet) 75 mg PO Q4H PRN PRN Reason: moderate anxiety Quetiapine Fumarate (Quetiapine Fumarate 50 Mg Tablet) 50 mg PO TID [facility] Last Admin: 07/24/21 09:17 Dose: 50 mg Documented by: Trazodone HCl (Trazodone Hcl 50 Mg Tablet) 50 mg PO BEDTIME PRN PRN Reason: Insomnia Last Admin: 07/23/21 22:36 Dose: 50 mg Documented by: Allergies Allergies Allergy/AdvReac Type Severity Reaction Status Date / Time No Known Allergies Allergy Verified 06/12/21 18:29 Assessment & Plan Assessment & Plan (1) PTSD (post-traumatic stress disorder): Status: Acute Code(s): F43.10 - Post-traumatic stress disorder, unspecified (2) Polysubstance (including opioids) dependence with physiol dependence: Status: Acute Code(s): F19.20 - Other psychoactive substance dependence, uncomplicated Plan tapered klonopin 1 mg TID to 1/0.5/1 as of 07/19, off completely as of 07/24. using clonidine, seroquel, atarax for anxiety. started prozac 20 mg daily 07/18, increased to 40 mg daily as of 07/24. started doxazosin 2 mg at HS 07/18, increased to 3 mg QHS as of 07/19, 5 mg as of 07/20, 6 mg as of 07/23. encourage clonidine first for anxiety, and seroquel second. seroquel 50 TID scheduled for anxiety prophylaxis. attempting to get admitted to [facility]. discharge weds, tentatively. I spent ___25___ minutes with the patient and/or on the patient floor today, greater than?50% of which was spent counseling/coordinating care. Reason for contiued inpatient stay Substantial Risk for: inability to function and rapid decompensation
[2021-07-24] MEDS: traZODone HCL 50 MG TABLET PO (22:04)
[2021-07-24] MEDS: Doxazosin Mesylate 2 MG TABLET 6 MG PO (22:05)
[2021-07-24 22:08] VITALS: BP 145/84; PULSE 82; RESP 18; TEMP 36.6; O2SAT 98
[2021-07-25] MEDS: Nicotine 21 MG PATCH.TD24 TRANSDERMA (07:56)
[2021-07-25] MEDS: Nicotine Polacrilex 2 MG GUM BUCCAL ×3 (07:57→13:08)
[2021-07-25] MEDS: cloNIDine HCL 0.1 MG TABLET PO ×2 (07:57→11:47)
[2021-07-25] MEDS: QUEtiapine Fumarate 50 MG TABLET PO (07:57)
[2021-07-25] MEDS: FLUoxetine HCl 20 MG CAPSULE 40 MG PO (07:57)
[2021-07-25] MEDS: QUEtiapine Fumarate 25 MG TABLET 75 MG PO ×2 (09:02→13:08)
[2021-07-25 09:29] VITALS: BP 129/84; PULSE 89; RESP 18; TEMP 36.7; O2SAT 98
[2021-07-25] MEDS: Ibuprofen 600 MG TABLET PO (10:46)
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
--- NOTE | 2021-07-25 13:19 | PC.NURSE ---
PT ready and aware of discharge. PT with bright affect and is future focused. PT denies SI/HI, denies depression. Pt continues to report some anxiety but reports that it is much improved with medication regime. PT aware of follow up appointment. PT reports he will arrange his own PCP appointment. Discharge instructions discussed, all questions answered. Belongings returned. PT ambulated off unit with steady gait.
== END 2021-07-25 13:19 | disposition home or self-care (01) | DRG 755 ==
LOC: HO.ED 16:05 → HO.PADLT16 07-17 16:27
PROVIDERS: Admitting Provider Psychiatry & Neurology Psychiatry; Emergency Provider Emergency Medicine; Visit Provider Psychiatry & Neurology Psychiatry
DX: F43.10 Post-traumatic stress disorder, unspecified (principal); F17.210 Nicotine dependence, cigarettes, uncomplicated; F19.20 Other psychoactive substance dependence, uncomplicated; Z20.822 Contact with and (suspected) exposure to COVID-19; Z71.6 Tobacco abuse counseling; Z79.899 Other long term (current) drug therapy
CPT/HCPCS: 36415; 80053; 80061; 80307; 82077; 83036; 85025; 87635; 93005; 99285